=== PATIENT | male | born 1950 | race Caucasian/White ===

== ENCOUNTER 2023-12-22 08:02 | Outpatient (CLI) | payer MEDICARE, SELFPAY | END 2023-12-22 08:03 | disposition home or self-care (01) | LOC: ANHBWCAUD 08:06 | PROVIDERS: PCP Internal Medicine; Visit Provider Otolaryngology | DX: H90.3 Sensorineural hearing loss, bilateral (principal) | CPT/HCPCS: 92557; 92567 ==

== ENCOUNTER 2024-05-31 08:00 | Outpatient (RCR) | payer MEDICARE, SELFPAY | END 2024-06-20 23:59 | disposition home or self-care (01) | LOC: ANHBWCAUD 08:00 | PROVIDERS: PCP Internal Medicine | DX: Z46.1 Encounter for fitting and adjustment of hearing aid (principal) | CPT/HCPCS: 99199; V5261 ==

== ENCOUNTER 2024-08-16 08:45 | Outpatient (RCR) | payer MEDICARE, SELFPAY | END 2024-08-16 13:07 | disposition home or self-care (01) | LOC: ANHCPREHAB 08:45 | PROVIDERS: PCP Internal Medicine; Visit Provider Internal Medicine Cardiovascular Disease | DX: Z95.1 Presence of aortocoronary bypass graft (principal) | CPT/HCPCS: 93798 ==

== ENCOUNTER 2024-09-22 09:10 | Emergency (ER) | payer MEDICARE, SELFPAY ==
--- NOTE | ~2024-09-22 | XR_ITS ---
XR ankle LT min 3V 09/22/2024 09:58 Indication: Twisting injury to the left ankle. Procedure: 4 views left ankle Comparison: No prior studies for comparison. Findings: Ankle mortise intact. No acute fracture or traumatic malalignment. There is a small osteoch ondral defect of the talus medially. There are mild degenerative changes of the tibiotalar joint. The re are degenerative calcaneal enthesophytes. Impression: 1: No acute fracture. 2: Small osteochondral defect medial aspect of the talus. Reviewed, dictated and finalized at location B. [employer] Impression: 1: No acute fracture. 2: Small osteochondral defect medial aspect of the talus.
--- NOTE | ~2024-09-22 | XR_ITS ---
XR ankle RT min 3V 09/22/2024 09:58 Indication: Right lateral ankle pain for one month Procedure: 4 views right ankle Comparison: No prior studies for comparison. Findings: There is an age-indeterminate distal fibular fracture with medial displacement. There is an old avulsion fracture distal to the fibula. There is moderate osteoarthritis of the ankle. There are prominent degenerative calcaneal enthesophytes. Impression: 1: Age-indeterminate distal fibular fracture with medial displacement. Correlate for point tenderness . Reviewed, dictated and finalized at location B. [employer] Impression: 1: Age-indeterminate distal fibular fracture with medial displacement. Correlat e for point tenderness.
[2024-09-22 09:18] VITALS: BP 127/73; PULSE 76; RESP 20; TEMP 36.1; O2SAT 100
--- NOTE | 2024-09-22 09:29 | ED_ITS ---
HPI - Extremity Injury (Lower) General Chief Complaint: Extremity Injury, Lower Stated Complaint: Left Ankle Injury/Right Ankle Pain Time Seen by Provider: 09/22/24 09:29 Source: patient, family, RN notes reviewed and old records reviewed Mode of arrival: ambulatory Limitations: no limitations History of Present Illness HPI Narrative: 73 year old male accompanied by spouse with complaints of getting his left foot caught while getting out of car and twisted his ankle and also hit on car door yesterday. Patient reports that he has had increase swelling and pain to the lateral aspect of his left ankle and had increased difficulty with weight bearing to his left ankle last evening. He states that he has iced and elevated his left ankle and foot and took Tylenol last evening. Patient reports that he has had pain also to his right ankle for a month after walking on treadmill no swelling or any point tenderness noted,doing cardiac rehab at this time had 4 vessel cardiac bypass done in May of this year. MD complaint: ankle injury (left, increased pain to right ankle after walking on treadmill for one month.) Onset (ago): day(s) (day 2 of pain left ankle, 1 month right ankle) Type of Injury: other (twisting of left ankle and hit lateral aspect on car door) Place: home Severity scale (1-10): 4 Treatments prior to arrival: cold therapy and other (Tylenol and elevation) Related Data Home Medications ?Medication ?Instructions ?Recorded ?Confirmed ?Last Taken ?Type aspirin 81 mg tablet,delayed mg 09/22/24 Unknown History release atorvastatin 80 mg tablet mg 09/22/24 Unknown History clopidogrel 75 mg tablet mg 09/22/24 Unknown History finasteride 5 mg tablet mg 09/22/24 Unknown History simvastatin 20 mg tablet mg 09/22/24 Unknown History Allergies Allergy/AdvReac Type Severity Reaction Status Date / Time No Known Allergies Allergy Mild Unverified 05/26/11 09:33 Review of Systems Review of Systems: CONSTITUTIONAL: Denies fever, chills, or sweats. EYES: Denies visual changes, redness, or discharge. ENT: Denies rhinorrhea, congestion, sore throat, or otalgia. CARDIOVASCULAR: Denies chest pain, palpitations, or edema. RESPIRATORY: Denies cough or dyspnea. GASTROINTESTINAL: Denies abdominal pain, nausea, vomiting, or diarrhea. GENITOURINARY: Denies dysuria or hematuria. SKIN: Denies rash or itching. MUSCULOSKELETAL: Denies back pain, positive for bilateral ankle pain left greater than right with swelling of lateral left ankle, or myalgia. NEUROLOGIC: Denies headache, numbness, or weakness. PSYCHIATRIC: Denies anxiety or depression. All systems reviewed & are unremarkable except as noted in HPI and below PMFSH Past Medical History Medical History (Updated 09/24/24 @ 16:35 by Nikia Sunshine NP) Fracture of ankle no surgery Kidney stones BPH (benign prostatic hyperplasia) Elevated cholesterol Surgical History Surgical History (Updated 09/22/24 @ 09:52 by Nikia Sunshine NP) History of total right knee replacement History of total left knee replacement History of open heart surgery 4 vessel bypass May of 2024 Family History Family History Sibling CAD (coronary artery disease) Mother CAD (coronary artery disease) Parkinson disease Father HLD (hyperlipidemia) Cerebrovascular accident Social History Social History (Updated 09/22/24 @ 09:51 by Nikia Sunshine NP) Smoking status: Never smoker Alcohol intake: current Alcohol use details: social rare Substance use type: does not use Living arrangements: with family Occupation/Education: retired Gender identity (if verbalized by the patient): Male Comments At time of signature, agree with nursing past medical, surgical, social and family history. There is no relevant family history pertinent to the presenting complaint Exam Narrative: GENERAL: Well-appearing, well-nourished, and in no acute distress. HEAD: Normocephalic, atraumatic. EYES: PERRLA and EOMI. ENT: Nares clear, no rhinorrhea or epistaxis. Mucous membranes moist. NECK: Supple. no lymphadenopathy CHEST: Clear to auscultation. No respiratory distress. no cough or any dyspnea noted, SAO2 100% on room air HEART: Regular rate and rhythm. No murmur heard. Normal peripheral pulses. ABDOMEN: Soft, nontender, nondistended, normal active bowel sounds. EXTREMITIES: Normal range of motion. No edema. Reports twisted left ankle yesterday and hit lateral aspect on car door has had swelling to the lateral aspect with discomfort, no bruising noted. Also states some discomfort to right ankle after walking on treadmill for the past month, full ROM noted. SKIN: Warm, dry, no rash. NEURO: No focal deficits. Alert and oriented x3. Course Course Emergency Course: Patient is aware of diagnosis, understands and agrees to treatment plan.? Anticipatory guidance given.? Patient agrees to follow-up as directed and is aware of reasons to seek care at the emergency department. Portions of this record may have been created with voice recognition software Level of Care: Express Care Visit Vital Signs Vital signs: Vital Signs Temperature 36.1 C L 09/22/24 09:18 Pulse Rate 76 09/22/24 09:18 Respiratory Rate 20 09/22/24 09:18 Blood Pressure 127/73 09/22/24 09:18 Pulse Oximetry 100 09/22/24 09:18 Oxygen Delivery Room Air 09/22/24 09:18 Temperature 36.1 C L 09/22/24 09:18 Pulse Rate 76 09/22/24 09:18 Respiratory Rate 20 09/22/24 09:18 Blood Pressure 127/73 09/22/24 09:18 Pulse Oximetry 100 09/22/24 09:18 Oxygen Delivery Room Air 09/22/24 09:18 Reviewed MDM - Extremity Injury (Lower) Differential Diagnosis Differential diagnosis: Likely ankle sprain and strain and other (old fibular fracture with no point tenderness, osteoarthritis right ankle, swelling and pain left ankle) Medical Records Attestation: I reviewed the patient's medical records. Imaging Data Attestation: I personally reviewed and interpreted this imaging study as follows: My impression: no acute fracture of left ankle, small osteochondral defect medial aspect of talus Right ankle age indeterminate distal fibular fracture with medial displacement, no point tenderness moderate osteoarthritis Radiologist's impression: [place] [id number] [place] [id number] XRay Report Signed Patient: Edin Craig Ordering Physician: Nikia Sunshine APRN Date of Service: 09/22/24 Procedure(s): XR ankle RT min 3V Accession Number(s): [id number] cc: Margot, Edward CALLOWAY; Nikia Sunshine APRN~ XR ankle RT min 3V 09/22/2024 09:58 Indication: Right lateral ankle pain for one month Procedure: 4 views right ankle Comparison: No prior studies for comparison. Findings: There is an age-indeterminate distal fibular fracture with medial disp lacement. There is an old avulsion fracture distal to the fibula. There is moderate osteoarthritis of the ankle. There are prominent degenerative calcaneal enthesophytes. Impression: 1: Age-indeterminate distal fibular fracture with medial displacement. Correlate for point tenderness. Reviewed, dictated and finalized at location B. [employer] Dictated By: Diony Lopez MD 09/22/24 1005 Signed By: <Electronically signed by Diony Lopez MD in OV> : 1950 MR#: [id number] Age: 73 Acct:[id number] Loc: [facility] ADM Date: 09/22/24Attending Dr: Ordering Physician: Nikia Sunshine APRN Date of Service: 09/22/24 Procedure(s): XR ankle LT min 3V Accession Number(s): [id number] cc: Margot, Edward CALLOWAY; Nikia Sunshine APRN~ XR ankle LT min 3V 09/22/2024 09:58 Indication: Twisting injury to the left ankle. Procedure: 4 views left ankle Comparison: No prior studies for comparison. Findings: Ankle mortise intact. No acute fracture or traumatic malalignment. There is a small osteochondral defect of the talus medially. There are mild degenerative changes of the tibiotalar joint. There are degenerative calcaneal enthesophytes. Impression: 1: No acute fracture. 2: Small osteochondral defect medial aspect of the talus. Reviewed, dictated and finalized at location B. 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, right ankle and foot Patient Disposition: Home, Self-Care Condition: Stable Instructions: Antibiotic Form Additional Instructions: Elastic wrap or orthopedic lace-up splint to ankle as directed for comfort for the next 5-7 days Tylenol for pain Follow-up with orthopedic surgeon if any further complaints Follow-up with PCP if further problems or concerns Ice to the area 20-30 minutes 4-6 times a day Elevate above heart If your symptoms persist, change or worsen significantly before you can contact your personal physician then please, without delay, go to the emergency department for further evaluation. Follow-up with PCP in 7-10 days or sooner if needed Follow up with PCP soon in regards to your blood pressure which is elevated above threshold for referral. Blood pressure above 120/80 may indicate pre- hypertension. 127/73 minimal elevation systolic Patient Language: Gabonese Prescriptions: No Action atorvastatin 80 mg tablet clopidogrel 75 mg tablet aspirin 81 mg tablet,delayed release (DR/EC) simvastatin 20 mg tablet finasteride 5 mg tablet Follow-up/Referrals: Margot,MD Edward [Primary Care Provider] - Time of Disposition: 10:42 Quality Salvatore Coma Scale Eyes: Open Verbal: Oriented and Alert Motor: Follows Commands Salvatore Coma Total Score: 15
== END 2024-09-22 10:49 | disposition home or self-care (01) ==
PROVIDERS: Emergency Provider Registered Nurse; PCP Hospitalist
DX: S96.912A Strain of unspecified muscle and tendon at ankle and foot level, left foot, initial encounter (principal); V48.4XXA Person boarding or alighting a car injured in noncollision transport accident, initial encounter; M19.171 Post-traumatic osteoarthritis, right ankle and foot; N40.0 Benign prostatic hyperplasia without lower urinary tract symptoms; E78.00 Pure hypercholesterolemia, unspecified; Z96.653 Presence of artificial knee joint, bilateral; Z95.1 Presence of aortocoronary bypass graft
CPT/HCPCS: 73610; 99214; G0463

== ENCOUNTER 2024-11-08 08:00 | Outpatient (RCR) | payer MEDICARE, SELFPAY | END 2024-11-10 13:29 | disposition home or self-care (01) | PROVIDERS: PCP Internal Medicine Cardiovascular Disease; Visit Provider Internal Medicine Cardiovascular Disease | DX: Z95.1 Presence of aortocoronary bypass graft (principal) | CPT/HCPCS: 93798 ==